=== PATIENT | female | born 1940 | race Caucasian/White ===

== ENCOUNTER 2016-07-21 16:53 | Observation (INO) ==
--- NOTE | 2016-07-21 18:06 | Emergency Department Note ---
Disposition Clinical Impression: Chest pain Qualifiers: Chest pain type: unspecified Qualified Code(s): R07.9 - Chest pain, unspecified Disposition: Admitted As Inpatient Condition: Good Referrals: Alejandro Milton MD [Primary Care Provider] - Forms: ED Satisfaction Letter Time of Disposition: 18:53 Chest Pain HPI - General Chief Complaint: ED Chest Pain Stated Complaint: chest pressure/KORI Time Seen by Provider: 07/21/16 18:03 Source: patient Limitations: no limitations Vital Signs Reviewed: Yes Nursing Notes Reviewed: Yes - History of Present Illness HPI Narrative: 76-year-old female with a history of asthma who states over the last couple of months she's had some intermittent chest tightness and dyspnea that she attributed to her history of asthma. Today she developed chest discomfort which went up into her teeth and she felt a little dizzy and felt like she was going to pass out. Patient has had no recent cardiac workup. 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 Duration: intermittent Onset: during rest Pain Location: substernal, left chest Severity scale (1-10): 3 Quality: tightness Pain Radiation: jaw/teeth Worsens with: nothing Treatments prior to arrival chest pain: none - Related Data Allergies Allergy/AdvReac Type Severity Reaction Status Date / Time Amoxicillin Allergy Nausea Unverified 09/12/15 14:39 baclofen Allergy Nausea Unverified 09/12/15 14:39 Erythromycin Base Allergy Nausea Unverified 09/12/15 14:39 metronidazole [From Flagyl] Allergy See Unverified 09/12/15 14:39 Comments tramadol [From Ultram] Allergy Nausea Unverified 09/12/15 14:39 Constitutional: Denies: fever, chills, weakness, weight change Eyes: Denies: eye pain, eye discharge, vision change ENT ED: Denies: ear pain, throat pain, dental pain, hearing loss, epistaxis, congestion, dysphagia Cardiovascular: Reports: chest pain. Denies: palpitations, dyspnea on exertion , edema, syncope Respiratory: Denies: cough, dyspnea, wheezes, hemoptysis, stridor Gastrointestinal: Denies: abdominal pain, nausea, vomiting, diarrhea, constipation, hematemesis, melena, hematochezia Genitourinary: Denies: dysuria, frequency, hematuria, discharge Musculoskeletal: Denies: back pain, neck pain, arthralgia, myalgia Integumentary: Denies: rash, abrasion, lesions Neurological: Denies: headache, weakness, numbness, paresthesias, confusion, abnormal gait, vertigo Psychiatric: Denies: anxiety, depression, suicidal thoughts, homicidal thoughts , auditory hallucinations, visual hallucinations Endocrine: Denies: fatigue Hematological/Lymphatic: Denies: easy bleeding, easy bruising Allergic/Immunologic: Denies: facial swelling, urticaria Chest Pain PMH - Past Medical History Medical history: Reports: other Psychiatric history: Reports: no psych history - Social History Smoking Status: Never smoker Alcohol use: Reports: occasionally Drug use: Reports: none Physical Exam - General Limitations: no limitations General appearance: alert, in no apparent distress - Head Head exam: atraumatic, normocephalic, normal inspection - Eye Eye exam: Present: normal appearance, PERRL, EOMI - ENT ENT exam: normal exam, normal oropharynx, mucous membranes moist - Neck Neck exam: Present: normal inspection, full ROM, trachea midline - Chest Chest inspection: Present: normal inspection, symmetric chest wall rise - Respiratory Respiratory exam: Present: normal lung sounds bilaterally - Cardiovascular Cardiovascular exam: Present: regular rate, normal rhythm, normal heart sounds - Abdominal Exam Abdominal exam: Present: soft, Non-Tender. Absent: tenderness, distention, guarding, rebound, rigidity - Extremities Exam Extremities exam: Present: normal inspection, full ROM. Absent: tenderness, pedal edema - Expanded Lower Extremity Exam Hip/Pelvis exam: Present: normal inspection, full ROM Upper leg exam: Present: normal inspection, full ROM Gait: observed and normal - Back Exam Back exam: Present: normal inspection, full ROM. Absent: tenderness - Neurological Exam Neurological exam: Present: alert, oriented X3 - Psychiatric Psychiatric exam: Present: normal affect, normal mood - Skin Skin exam: Present: warm, dry, intact, normal color Course - Reevaluation(s) Reevaluation #1: 76-year-old with the previous heart history no recent cardiac workup has been having some intermittent chest tightness and shortness of breath that she attributed to her asthma. Tonight however she developed fairly significant chest heaviness with aching of her lower jaw and teeth and dizziness with near syncope. Her workup in the emergency department is negative however with her risk factors and her symptoms patient will be admitted for rule out. Time: 18:54 - Consultations Consultation #1: Discussed with Parvin Andrew, admit Time: 18:59 Vital Signs Temperature 98.3 F 07/21/16 17:10 Pulse Rate 96 07/21/16 17:10 Respiratory Rate 16 07/21/16 17:10 Blood Pressure 162/91 07/21/16 17:10 O2 Sat by Pulse Oximetry 95 07/21/16 17:10 Temperature 98.3 F 07/21/16 17:10 Pulse Rate 96 07/21/16 17:10 Respiratory Rate 16 07/21/16 17:10 Blood Pressure 162/91 07/21/16 17:10 O2 Sat by Pulse Oximetry 95 07/21/16 17:10 Oxygen Delivery Oxygen Delivery Room Air Chest Pain - Lab Data Lab results reviewed: Yes I reviewed the patient's lab results. Result diagrams: 07/21/16 18:11 07/21/16 18:11 Lab Results 07/21/16 07/21/16 07/21/16 Range/Units 18:11 18:11 18:11 WBC 8.6 (4.3-11.1) K/mcL RBC 4.70 (3.82-4.97) M/mcL Hgb 16.0 H (11.5-15.4) g/dL Hct 46.0 H (35.3-44.9) % MCV 97.9 (83.0-100.0) fL MCH 34.0 H (28.0-33.3) pg MCHC 34.8 (31.6-35.5) g/dL RDW 11.9 (11.5-14.5) % Plt Count 318 (140-400) K/mcL MPV 9.3 L (9.4-12.4) fL Immature Gran % 0.1 (0-4) % Seg Neutrophils % 82.6 % Lymphocytes % 13.8 % Monocytes % 3.3 % Eosinophils % 0.0 % Basophils % 0.2 % Neutrophils # 7.1 (1.6-8.9) K/mcL Lymphocytes # 1.2 (0.6-4.6) K/mcL Monocytes # 0.3 (0.0-1.3) K/mcL Eosinophils # 0.0 (0.0-0.6) K/mcL Basophils # 0.0 (0.0-0.2) K/mcL Immature Plt Fraction 2.0 (1.1-6.1) % PT (9.4-12.1) Seconds INR APTT (26.0-36.0) Seconds Sodium 139 (136-145) mEq/L Potassium 4.5 (3.5-4.5) mEq/L Chloride 107 (98-109) mEq/L Carbon Dioxide 22 (19-29) mEq/L BUN 24 H (7-20) mg/dL Creatinine 0.85 (0.57-1.11) mg/dL Est GFR ( Amer) > 60 (> 60) Est GFR (Non-Af Amer) > 60 (> 60) BUN/Creatinine Ratio 28 H (6-26) Glucose 110 H (70-99) mg/dL Calculated Osmolality 293 (280-300) Calcium 9.9 (8.6-10.8) mg/dL Troponin I 0.00 (0-0.03) ng/mL 07/21/16 Range/Units 18:11 WBC (4.3-11.1) K/mcL RBC (3.82-4.97) M/mcL Hgb (11.5-15.4) g/dL Hct (35.3-44.9) % MCV (83.0-100.0) fL MCH (28.0-33.3) pg MCHC (31.6-35.5) g/dL RDW (11.5-14.5) % Plt Count (140-400) K/mcL MPV (9.4-12.4) fL Immature Gran % (0-4) % Seg Neutrophils % % Lymphocytes % % Monocytes % % Eosinophils % % Basophils % % Neutrophils # (1.6-8.9) K/mcL Lymphocytes # (0.6-4.6) K/mcL Monocytes # (0.0-1.3) K/mcL Eosinophils # (0.0-0.6) K/mcL Basophils # (0.0-0.2) K/mcL Immature Plt Fraction (1.1-6.1) % PT 10.6 (9.4-12.1) Seconds INR 1.0 APTT 30.8 (26.0-36.0) Seconds Sodium (136-145) mEq/L Potassium (3.5-4.5) mEq/L Chloride (98-109) mEq/L Carbon Dioxide (19-29) mEq/L BUN (7-20) mg/dL Creatinine (0.57-1.11) mg/dL Est GFR ( Amer) (> 60) Est GFR (Non-Af Amer) (> 60) BUN/Creatinine Ratio (6-26) Glucose (70-99) mg/dL Calculated Osmolality (280-300) Calcium (8.6-10.8) mg/dL Troponin I (0-0.03) ng/mL - Radiology Data Radiology results reviewed: Yes I reviewed the patient's radiology results. Chest x-ray shows no acute findings per my read - EKG Data EKG attestation: Yes I reviewed and interpreted this EKG. EKG shows normal: sinus rhythm Rate: normal Rhythm: NSR Interpretation: no acute changes Heart Score - Score History: Moderately Suspicious EKG: Non Specific repolarisation Disturbance Age: Greater than 65 Risk Factors: 1-2 risk factors Troponin: Less than normal limit HEART Score Total: 5
[2016-07-21 18:21] LABS: Basophils % 0.2 %; Immature Granulocytes % 0.1 % (0-4); Lymphocytes # 1.2 K/mcL (0.6-4.6); Lymphocytes % 13.8 %; Mean Corpuscular HGB Conc 34.8 g/dL (31.6-35.5); Mean Corpuscular Volume 97.9 fL (83.0-100.0); Mean Platelet Volume 9.3 fL (9.4-12.4); Monocytes # 0.3 K/mcL (0.0-1.3); Monocytes % 3.3 %; Neutrophils # 7.1 K/mcL (1.6-8.9); Platelet Count 318 K/mcL (140-400); Red Cell Distribution Width 11.9 % (11.5-14.5); Segmented Neutrophils % 82.6 %
[2016-07-21 18:30] LABS: Prothrombin Time 10.6 Seconds (9.4-12.1)
[2016-07-21 18:32] LABS: Activated Partial Thrombo Time 30.8 Seconds (26.0-36.0)
[2016-07-21 18:33] LABS: BUN/Creatinine Ratio 28 (6-26); Blood Urea Nitrogen 24 mg/dL (7-20); Calcium 9.9 mg/dL (8.6-10.8); Carbon Dioxide 22 mEq/L (19-29); Chloride 107 mEq/L (98-109); Glucose 110 mg/dL (70-99); Osmolality,Calculated 293 (280-300); Potassium 4.5 mEq/L (3.5-4.5); Sodium 139 mEq/L (136-145); eGFR For African Americans > 60 (> 60); eGFR For Non-African Americans > 60 (> 60)
[2016-07-21] MEDS ORDERED: Naloxone 0.4 MG/ML INJ IVP PRN (22:50)
[2016-07-21] MEDS ORDERED: Albuterol 2.5 MG/3 ML NEBULIZER IH PRN (23:25)
[2016-07-21] MEDS ORDERED: NON-FORMULARY MEDICATION 1 EACH EACH (Melatonin [Melatonin] 5 MG) PO SCH (23:30)
[2016-07-21] MEDS ORDERED: Melatonin 3 MG TABLET PO SCH (23:45)
--- NOTE | 2016-07-22 00:47 | Internal Med History&Physical ---
Date of Encounter: 07/21/16 Time of Encounter: 23:00 Assessment and Plan (1) Chest pain Current visit: Yes Status: Acute Patient describes sharp pain radiating to her jaw accompanied by lightheadedness and dizziness lasting 15 min, followed by residual "heaviness" in her chest for a short while. Troponin negative at 0.0. EKG showed normal sinus rhythm. Her risk factors include age and remote smoking history. serial troponins continuous cardiac rn stress and echo in the morning. Qualifiers: Chest pain type: precordial pain Qualified Code(s): R07.2 - Precordial pain (2) Asthma Current visit: Yes Status: Acute Patient with history of asthma for which she uses a rescue inhaler. continue albuterol inhaler. Qualifiers: Asthma severity: unspecified severity Asthma complication type: uncomplicated Qualified Code(s): J45.909 - Unspecified asthma, uncomplicated (3) DVT prophylaxis Current visit: Yes Status: Acute encourage ambulation anti-embolic stockings Lovenox 40mg SQ daily Internal Medicine - H&P: HPI Chief complaint: chest pain Admitted From: Emergency Dept Plans for Post Hospital Care: Home History of present illness: Ms. Newman is a 76 year old female with asthma, history of diverticulitis, hiatal hernia, and GERD presented there emergency department today with complaints of chest pain. She reports she has been having chest tightness and heaviness every so often for the last several months, which she attributed to her asthma. However today she reports the pain was sharp and radiated up to her jaw and teeth and was accompanied by lightheadedness and dizziness. It lasted approximately 15 minutes, and she had residual heaviness sensation in her chest afterwards. She denies headache, shortness of breath, abdominal pain , nausea, vomiting, numbness or tingling. Evaluation in the emergency department included an EKG which showed normal sinus rhythm, chest x-ray which showed no acute findings. Troponin was negative at 0.0. She was mildly polycythemic with a hematocrit of 46.0. BUN was mildly elevated at 24, but her creatinine was normal at 0.85. She was admitted to initially hypertensive with blood pressure in the 160s however that came down without intervention. Patient reported that her chest pain had resolved. On exam, patient is alert and oriented, in no acute distress. Heart has regular rate and rhythm lungs are clear bilaterally to auscultation. Past Med Surg Social Fam HX - Past Medical History Medical history: arthritis, asthma, hyperlipidemia, other Psychiatric history: no psych history - Past Surgical History Surgical History: herniorrhaphy - Social History Smoking Status: Former smoker (10 Pack year history) Smokeless Tobacco Status: No Alcohol use: occasionally Drug use: none - Family History Grandfather Living Status: Cause [facility] - H&P: Meds Albuterol Neb [Proventil Neb] 2.5 mg IH Q4-6H PRN 07/21/16 [History] Calcium Carbonate [Tums] 1,000 mg PO DAILY 07/21/16 [History] Cholecalciferol (D-3) [Vitamin D] 1,000 unit PO DAILY 07/21/16 [History] Dicyclomine [Bentyl] 20 mg PO DAILY PRN 07/21/16 [History] L. Acidophilus/L.bulgaricus [Floranex Tablet] 1 each PO TID 07/21/16 [History] Loratadine [Claritin] 10 mg PO DAILY 07/21/16 [History] Melatonin 5 mg PO HS 07/21/16 [History] Multivitamin [Multi-Day Vitamins] 1 each PO DAILY 07/21/16 [History] Pantoprazole Sodium [Protonix] 20 mg PO DAILY 07/21/16 [History] Allergies Amoxicillin Allergy (Verified 07/21/16 20:28) Nausea baclofen Allergy (Verified 07/21/16 20:28) Nausea Erythromycin Base Allergy (Verified 07/21/16 20:28) Nausea metronidazole [From Flagyl] Allergy (Verified 07/21/16 20:28) See Comments Headache, achy, weak, dizzy tramadol [From Ultram] Allergy (Verified 07/21/16 20:28) Nausea All Systems PM: A 10-system review of systems was performed and is negative for pertinent findings except as documented above in the HPI. - Constitutional Constitutional: no chills, no fever(s), no night sweats - EENT Eyes: no change in vision, no discharge, no pain, no photophobia Ears: no ear discharge, no ear pain, no tinnitus Nose, mouth and throat: no dysphagia, no nasal discharge, no neck pain, no sore throat - Cardiovascular Cardiovascular ROS IM: chest pain, lightheadedness, palpitations, no diaphoresis , no dyspnea, no syncope - Respiratory Respiratory: no cough, no dyspnea, no wheezing, no excessive phlegm production - Gastrointestinal Gastrointestinal: no abdominal pain, no diarrhea, no hematemesis, no hematochezia, no melena, no nausea, no vomiting - Genitourinary Genitourinary: no change in urinary stream, no dysuria, no flank pain, no hematuria - Musculoskeletal Musculoskeletal ROS IM: no numbness, no tingling - Integumentary Integumentary IM: no rash, no unusual bruising - Neurological Neurological ROS: no confusion, no convulsions, no focal weakness, no numbness, no tingling, no tremor(s) - Hematologic/Lymphatic Hematologic/Lymphatic: no easy bruising - Constitutional Vitals: Temp Pulse Resp BP Pulse Ox 97.9 F 70 15 156/77 97 07/21/16 23:01 07/21/16 23:01 07/21/16 23:01 07/21/16 23:01 07/21/16 23:01 General appearance: Present: A&O X 3, pleasant, no acute distress - Head Head exam: Present: atraumatic, normocephalic - Eye Eye exam: Present: PERRL, conjuntiva pink, sclera anicteric Pupils: Present: PERRL - Neck Neck exam general surgery: Present: supple, trachea midline. Absent: lymphadenopathy - Respiratory Respiratory exam: Present: CTAB. Absent: accessory muscle use, rales, rhonchi, wheezes - Cardiovascular Cardiovascular exam: Present: RRR, +S1, +S2. Absent: diastolic murmur, gallop, rubs, systolic murmur - GI/Abdominal GI/Abdominal exam: Present: normal bowel sounds, soft, no peritoneal signs. Absent: distended, tenderness - Extremities Exam Extremities exam: Present: warm, radial pulses palpable and symetrical. Absent : calf tenderness, cyanotic, pedal edema - Neurological Exam Neurological exam: Present: CN II-XII intact, oriented X3, no focal deficits. Absent: facial droop, speech deficit - Skin Skin exam: Present: dry, intact Internal Med - H&P Results - Labs CBC & Chem 7: 07/21/16 18:11 07/21/16 18:11 Labs: All Lab Results (24 Hours) 0307/21/16 07/21/16 Range/Units 18:11 18:11 18:11 WBC 8.6 (4.3-11.1) K/mcL RBC 4.70 (3.82-4.97) M/mcL Hgb 16.0 H (11.5-15.4) g/dL Hct 46.0 H (35.3-44.9) % MCV 97.9 (83.0-100.0) fL MCH 34.0 H (28.0-33.3) pg MCHC 34.8 (31.6-35.5) g/dL RDW 11.9 (11.5-14.5) % Plt Count 318 (140-400) K/mcL MPV 9.3 L (9.4-12.4) fL Immature Gran % 0.1 (0-4) % Seg Neutrophils % 82.6 % Lymphocytes % 13.8 % Monocytes % 3.3 % Eosinophils % 0.0 % Basophils % 0.2 % Neutrophils # 7.1 (1.6-8.9) K/mcL Lymphocytes # 1.2 (0.6-4.6) K/mcL Monocytes # 0.3 (0.0-1.3) K/mcL Eosinophils # 0.0 (0.0-0.6) K/mcL Basophils # 0.0 (0.0-0.2) K/mcL Immature Plt Fraction 2.0 (1.1-6.1) % PT (9.4-12.1) Seconds INR APTT (26.0-36.0) Seconds Sodium 139 (136-145) mEq/L Potassium 4.5 (3.5-4.5) mEq/L Chloride 107 (98-109) mEq/L Carbon Dioxide 22 (19-29) mEq/L BUN 24 H (7-20) mg/dL Creatinine 0.85 (0.57-1.11) mg/dL Est GFR ( Amer) > 60 (> 60) Est GFR (Non-Af Amer) > 60 (> 60) BUN/Creatinine Ratio 28 H (6-26) Glucose 110 H (70-99) mg/dL Calculated Osmolality 293 (280-300) Calcium 9.9 (8.6-10.8) mg/dL Troponin I 0.00 (0-0.03) ng/mL TSH (0.350-4.840) mcIU/mL 07/21/16 07/21/16 Range/Units 18:11 18:11 WBC (4.3-11.1) K/mcL RBC (3.82-4.97) M/mcL Hgb (11.5-15.4) g/dL Hct (35.3-44.9) % MCV (83.0-100.0) fL MCH (28.0-33.3) pg MCHC (31.6-35.5) g/dL RDW (11.5-14.5) % Plt Count (140-400) K/mcL MPV (9.4-12.4) fL Immature Gran % (0-4) % Seg Neutrophils % % Lymphocytes % % Monocytes % % Eosinophils % % Basophils % % Neutrophils # (1.6-8.9) K/mcL Lymphocytes # (0.6-4.6) K/mcL Monocytes # (0.0-1.3) K/mcL Eosinophils # (0.0-0.6) K/mcL Basophils # (0.0-0.2) K/mcL Immature Plt Fraction (1.1-6.1) % PT 10.6 (9.4-12.1) Seconds INR 1.0 APTT 30.8 (26.0-36.0) Seconds Sodium (136-145) mEq/L Potassium (3.5-4.5) mEq/L Chloride (98-109) mEq/L Carbon Dioxide (19-29) mEq/L BUN (7-20) mg/dL Creatinine (0.57-1.11) mg/dL Est GFR ( Amer) (> 60) Est GFR (Non-Af Amer) (> 60) BUN/Creatinine Ratio (6-26) Glucose (70-99) mg/dL Calculated Osmolality (280-300) Calcium (8.6-10.8) mg/dL Troponin I (0-0.03) ng/mL TSH 1.091 (0.350-4.840) mcIU/mL - Diagnostic Studies Chest x-ray Additional comments: Chest X-Ray 07/21/16 17:10 IMPRESSION: Left basilar airspace disease could reflect atelectasis, though pneumonia cannot be excluded in the correct clinical setting. D/ / 07/21/2016 18:59:09 Eduardo Minor MD / amie Interpreting Provider: Eduardo Minor MD
[2016-07-22 01:02] LABS: Basophils % 0.3 %; Eosinophils # 0.1 K/mcL (0.0-0.6); Eosinophils % 0.9 %; Hematocrit 41.5 % (35.3-44.9); Immature Granulocytes % 0.3 % (0-4); Lymphocytes # 2.4 K/mcL (0.6-4.6); Lymphocytes % 30.2 %; Mean Corpuscular HGB Conc 33.7 g/dL (31.6-35.5); Mean Corpuscular Hemoglobin 33.3 pg (28.0-33.3); Mean Corpuscular Volume 98.6 fL (83.0-100.0); Mean Platelet Volume 9.4 fL (9.4-12.4); Monocytes # 0.9 K/mcL (0.0-1.3); Monocytes % 10.8 %; Neutrophils # 4.6 K/mcL (1.6-8.9); Platelet Count 265 K/mcL (140-400); Red Blood Count 4.21 M/mcL (3.82-4.97); Segmented Neutrophils % 57.5 %
[2016-07-22 01:06] LABS: BUN/Creatinine Ratio 26 (6-26); Blood Urea Nitrogen 24 mg/dL (7-20); Calcium 9.2 mg/dL (8.6-10.8); Carbon Dioxide 26 mEq/L (19-29); Chloride 107 mEq/L (98-109); Glucose 98 mg/dL (70-99); Osmolality,Calculated 294 (280-300); Potassium 4.2 mEq/L (3.5-4.5); Sodium 140 mEq/L (136-145); eGFR For African Americans > 60 (> 60); eGFR For Non-African Americans > 60 (> 60)
[2016-07-22] MEDS ORDERED: Regadenoson 0.4 MG/5 ML SYRINGE IVP ONE (06:22)
--- NOTE | 2016-07-22 08:26 | Electrocardiograph Report ---
[place] [id number] Test Date: 2016-07-21 Pat Name: Karla Newman Department: 102 Room: 3B41 Gender: F Facility Assistant: [facility] : 1940 Requested By: Rajendra Dailey Order Number: [id number] Reading MD: Joe Packer MD Measurements Intervals [place] Rate: 97 P: 40 SD: 198 QRS: 9 QRSD: 76 T: 33 QT: 336 QTc: 391 Interpretive Statements SINUS RHYTHM LEFT ATRIAL ENLARGEMENT Electronically Signed On 07-22-2016 8:25:08 EDT by Joe Packer MD
--- NOTE | 2016-07-22 11:07 | Nuclear Medicine Stress Report ---
Regadenoson Nuclear Stress Name: Karla Newman Date of Study: 07/22/2016 Date: 1940 Ht: 66.0 in Medical Record#: [id number] Age: 76 Wt: 182.0 lb Gender: Female Order #: [id number] Location: [facility] IP Room: [facility] Supervising Provider: Tari Peter CNP Reading Physician: Greg Paul MD, [facility] Ordering Physician: Celina Loco CNP Primary Care Physician: Alejandro Milton MD Stress Technologist: Raquel Bloom [employer]YNAM[employer] AX SOLUTION ARCHITECT, CCT Food Assembler: Abundio John Indications: Chest Pain Impression: No significant ECG changes with regadenoson. Gated LVEF > 70%. Perfusion imaging was negative for ischemia or infarct. History: Hypertension Hypercholesteremia Stress Test Summary: Stress Test Type: Pharmacologic Regadenoson 0.4mg/5ml given IV Baseline Information: Initial Heart Rate: 77 Blood Pressure: 160/82 Stress Information: Test Terminated Due to (primary): As per protocol Maximum Blood Pressure: 138/78 Maximum Heart Rate: 102 Percent Maximum Heart Rate Achieved: 70 Double Product: [id number] Symptoms: No chest symptoms, Dizziness Nuclear Summary: SPECT myocardial perfusion imaging using Tc99m Sestamibi given intravenously was performed at rest and following cardiac stress testing. The resting images were obtained following initial dose of 11.5 mCi. Following stress an additional dose of 31.8 mCi was given at peak exercise or 30 seconds post regadenoson infusion. Findings: Stress Note * Resting ECG demonstrated sinus rhythm, non-specific ST-T wave abnormality. * No baseline arrhythmias were noted. * Patient had no chest pain during stress. * No arrhythmias were noted during stress. * No significant ECG changes with regadenoson. Hemodynamic responses * Normal hemodynamic responses to pharmacologic stress. Study Quality * Study quality is good. Gated EF > 70% * Gated LVEF > 70%. Left Ventricle * The left ventricle is not dilated. * Normal Segmental Perfusion in rest. * Normal segmental perfusion in stress. TID * No evidence of transient ischemic dilatation. Updated by Greg Paul MD, [facility] on 07/22/2016 11:01:59 AM electronically signed on 07/22/2016 11:02:21 AM with status of Final
--- NOTE | 2016-07-22 12:39 | ECHO - Doppler Report ---
Echocardiogram Name: Karla Newman Date of Study: 07/22/2016 Date: 1940 Ht: 66.0 in Medical Record#: [id number] Age: 76 Wt: 182.0 lb Gender: Female BSA: 1.92 Order #: [id number] Location: [facility] Room #: 3B41 Reading Physician: Greg Paul MD, [facility] Vacuum Conditioner Operator: PEPE ChavarriaT, [facility] Ordering Physician: Parvin Morales CNP Primary Physician: Alejandro Milton MD Indications: Chest pain Impressions: Normal LV systolic function, LVEF 65-70%. Mild concentric left ventricular hypertrophy. Mild left ventricular diastolic dysfunction. Normal right ventricular size and function. No significant valvular dysfunction. Unable to estimate RVSP due to lack of TR jet. Left Ventricular Wall Motion: Rest Echo Findings All wall segments showed normal motion. Findings: Study Quality * Suboptimal echo windows. ECG Findings * Normal sinus rhythm. Left Ventricle * Normal LV systolic function, LVEF 65-70%. * Mild concentric left ventricular hypertrophy. * Mild left ventricular diastolic dysfunction. Right Ventricle * Normal right ventricular size and function. Left Atrium * Normal left atrial size. Right Atrium * Normal right atrial size. Aorta * Normally sized aortic root. Pericardium * There is no pericardial effusion present. IVC * Normal IVC dimensions and inspiratory collapse. Aortic Valve * Trileaflet aortic valve. * No aortic stenosis. * No aortic regurgitation. Mitral Valve * Normal mitral valve structure. * No mitral stenosis. * No mitral regurgitation. Tricuspid Valve * Tricuspid valve not well visualized. * No tricuspid stenosis. * Trace tricuspid regurgitation. * Unable to estimate RVSP due to lack of TR jet. Pulmonic Valve * Pulmonic valve not well visualized. * No pulmonic stenosis. * Trace pulmonic regurgitation. History Hypercholesteremia Rheumatic Fever Measurements: BP: 146/ 77 2D Normal Values RVIDd: 2.60 cm IVSd: 1.30 cm 0.6 - 1.0 cm LVIDd: 4.10 cm 3.7 - 5.6 cm LVPWd: 1.20 cm 0.6 - 1.1 cm LVIDs: 2.60 cm 1.5 - 3.6 cm AO: 3.20 cm < 4.0 cm %FS: 36.60 cm >25 % LA volume: 49 Mitral Valve Peak E:.69 m/sec Peak A:1.12 m/sec E/A Ratio:0.6 Updated by Greg Paul MD, [facility] on 07/22/2016 12:33:17 PM electronically signed on 07/22/2016 12:33:47 PM with status of Final Wall Motion Cruz: 1=Normal, 2=Hypokinesis, 3=Akinesis, 4=Dyskinesis, 5=Aneurysmal, 6=Hyperkinetic, X=Not Visualized (Blank)=Missing
--- NOTE | 2016-07-22 14:28 | Discharge Summary ---
Date of Encounter: 07/22/16 Time of Encounter: 10:45 - Discharge Diagnosis (1) Chest pain Priority: Primary Status: Resolved Comments: Patient denies chest pain today. She also denies chest pain during her stress test. Strength shows no significant ECG changes with medication and gated LVEF of greater than 70%. Echo showed LVEF of 65-70%, mild concentric left ventricular hypertrophy, mild left ventricular diastolic dysfunction, normal RV size and function and no significant valvular dysfunction. Chest xray shows no acute cardiopulmonary process. Lungs are clear, pain is not reproduceable with palpation or movement. Qualifiers: Chest pain type: unspecified Qualified Code(s): R07.9 - Chest pain, unspecified (2) Asthma Priority: Secondary Status: Chronic Comments: Pt states that asthma is well-controlled with only Albuterol inhaler. Lungs are clear and pt is not SOB. No wheezing, stridor, or ronchi. Continue home medications. Qualifiers: Asthma severity: unspecified severity Asthma complication type: uncomplicated Qualified Code(s): J45.909 - Unspecified asthma, uncomplicated (3) DVT prophylaxis Priority: Secondary Status: Acute Comments: Pt was getting Lovenox, using ODELL hose and amb in her room independently. - Discharge Medications Home Medications: Albuterol Neb [Proventil Neb] 2.5 mg IH Q4-6H PRN 07/21/16 [History] Calcium Carbonate [Tums] 1,000 mg PO DAILY 07/21/16 [History] Cholecalciferol (D-3) [Vitamin D] 1,000 unit PO DAILY 07/21/16 [History] Dicyclomine [Bentyl] 20 mg PO DAILY PRN 07/21/16 [History] L. Acidophilus/L.bulgaricus [Floranex Tablet] 1 each PO TID 07/21/16 [History] Loratadine [Claritin] 10 mg PO DAILY 07/21/16 [History] Melatonin 5 mg PO HS 07/21/16 [History] Multivitamin [Multi-Day Vitamins] 1 each PO DAILY 07/21/16 [History] Pantoprazole Sodium [Protonix] 20 mg PO DAILY 07/21/16 [History] Allergies/Adverse Reactions: Allergies Amoxicillin Allergy (Verified 07/21/16 20:28) Nausea baclofen Allergy (Verified 07/21/16 20:28) Nausea Erythromycin Base Allergy (Verified 07/21/16 20:28) Nausea metronidazole [From Flagyl] Allergy (Verified 07/21/16 20:28) See Comments Headache, achy, weak, dizzy tramadol [From Ultram] Allergy (Verified 07/21/16 20:28) Nausea Procedures/tests Complete & Pending: Procedures Performed prior 72 hours Category Date Time Status NM teagan perf SPECT multi [NM] Routine Exams 07/21/16 23:28 Taken EV echocardiogram Routine Y 07/22/16 08:00 Completed SP pharm nuclear stress Routine Y 07/22/16 07:20 Completed Date of admission: 07/21/16 20:18 Primary care physician: Alejandro Milton MD Discharging clinician: Beverley Bermudez Anticipated date of discharge: 07/22/16 - Patient Status Disposition: Home, Self-Care Functional capacity at discharge: independent ambulation Overall status at discharge: patient is back to baseline - Discharge Instructions Follow Up With: Alejandro Milton MD [Primary Care Provider] - Additional Instructions: Please hold your primary care provider in the next week for recheck and evaluation. Please return for any new concerns or complaints, or if your pain returns. Continue only her normal home medications. - Diet and Activity Activity: increase activity as tolerated, resume usual activities as tolerated Diet: advance to your usual diet Hospital course: Ms. Newman is a 76 year old female who reports intermittent shortness of breath and midsternal chest pain that began with exertion, such as walking her dog, for a few weeks. yesterday pain radiated into her teeth and she became short of breath and had tunnel vision , all of this while at rest, per her description which were all new symptoms. She tried to call her family doctor who told her to come to the emergency department for evaluation. Troponins were all negative 3 EKG was normal sinus rhythm with no signs of ischemia. She has had no dysrhythmias on telemetry. Her chest x-ray was negative for any acute cardiopulmonary processes. Chest test was negative for ischemia. Echo was negative as well, LVEF 60-65%. Patient is stable for discharge and agrees to follow-up with primary care physician. Time spent discussing smoking cessation with patient: 3 to 10 minutes - Time Spent with Patient Total time spent providing and/or coordinating discharge services: - Constitutional Vitals: Temp Pulse Resp BP Pulse Ox 98.4 F 91 14 146/87 96 07/22/16 11:33 07/22/16 11:33 07/22/16 11:33 07/22/16 11:33 07/22/16 11:33 General appearance: Present: cooperative, A&O X 3, pleasant, no acute distress, answers questions appropriately - Head Head exam: Present: normal inspection - Eye Eye exam: Present: normal appearance, conjuntiva pink. Absent: nystagmus - ENT ENT exam: Present: mucous membranes moist, normal exam, normal external ear exam - Neck Neck exam general surgery: Present: normal inspection. Absent: lymphadenopathy , tenderness - Respiratory Respiratory exam: Present: CTAB. Absent: respiratory distress, rhonchi, stridor , wheezes - Cardiovascular Cardiovascular exam: Present: RRR, +S1, +S2. Absent: diastolic murmur, systolic murmur - GI/Abdominal GI/Abdominal exam: Present: normal bowel sounds. Absent: distended, hepatomegaly, tenderness - Extremities Exam Extremities exam: Present: full ROM, normal inspection, warm, radial pulses palpable and symetrical. Absent: mottling, pedal edema, tenderness - Neurological Exam Neurological exam: Present: alert, oriented X3, strengths equal and symetr throughout. Absent: no focal deficits, facial droop, speech deficit
[2016-07-22 15:26] VITALS: BP 128/85
== END 2016-07-22 16:33 | disposition home or self-care (01) ==
LOC: EMEROO 16:53 → 3BNU 16:53
PROVIDERS: ADMIT Nurse Practitioner Family; ATTEND Registered Nurse